=== PATIENT | male | born 1945 | race Caucasian/White ===

== ENCOUNTER 2016-12-23 20:43 | Emergency (ER) | payer MEDICARE ==
[~2016-12-23] VITALS: Ht 172.7 cm; Wt 88.0 kg
[2016-12-23 20:45] VITALS: BP 132/95
== END 2016-12-23 22:20 | disposition left against medical advice (07) ==
LOC: ER 21:04
DX: Z53.21 Procedure and treatment not carried out due to patient leaving prior to being seen by health care provider (principal)